=== PATIENT | male | born 1975 | race Caucasian/White ===

== ENCOUNTER 2022-12-29 09:27 | Outpatient (CLI) | payer OTHER, SELFPAY ==
--- NOTE | 2022-12-29 11:00 | NEURO_ITS ---
Impression: # Patient reports concern for Carpal Tunnel Syndrome, presenting with numbness in both hands. He has had surgery for Carpal Tunnel Syndrome in the past. # Normal Nerve Conduction Study. # Normal needle/EMG exam. # Clinical correlation recommended. Nerve Conduction Studies Anti Sensory Summary Table Stim Site NR Peak (ms) P-T Amp (?V) Site1 Site2 Delta-P (ms) Dist (cm) Keenan (m/s) Left Median Anti Sensory (2-3nd Digit) Wrist 3.6 53.3 Wrist 2-3nd Digit 3.6 14.0 39 Wrist 3.8 20.8 Wrist 2-3nd Digit 3.6 14.0 39 Right Median Anti Sensory (2-3nd Digit) Wrist 3.8 53.7 Wrist 2-3nd Digit 3.8 14.0 37 Wrist 3.9 32.1 Wrist 2-3nd Digit 3.8 14.0 37 Left Radial Anti Sensory (Base 1st Digit) Wrist 2.6 27.0 Wrist Base 1st Digit 2.6 0.0 Right Radial Anti Sensory (Base 1st Digit) Wrist 1.4 25.3 Wrist Base 1st Digit 1.4 0.0 Left Ulnar Anti Sensory (5th Digit) Wrist 3.0 32.1 Wrist 5th Digit 3.0 14.0 47 Right Ulnar Anti Sensory (5th Digit) Wrist 3.3 25.4 Wrist 5th Digit 3.3 14.0 42 Motor Summary Table Stim Site NR Onset (ms) O-P Amp (mV) Site1 Site2 Delta-0 (ms) Dist (cm) Keenan (m/s) Left Median Motor (Abd Poll Brev) Wrist 3.2 6.2 Elbow Wrist 4.2 24.0 57 Elbow 7.4 6.0 Right Median Motor (Abd Poll Brev) Wrist 3.3 7.1 Elbow Wrist 4.1 22.0 54 Elbow 7.4 6.1 Left Ulnar Motor (Abd Dig Minimi) Wrist 3.0 6.8 A Elbow Wrist 5.1 30.0 59 A Elbow 8.1 6.2 B Elbow Wrist 3.3 20.0 61 B Elbow 6.3 6.1 Right Ulnar Motor (Abd Dig Minimi) Wrist 2.8 8.4 A Elbow Wrist 4.9 29.0 59 A Elbow 7.7 8.2 B Elbow Wrist 3.1 19.0 61 B Elbow 5.9 7.9 F Wave Studies NR F-Lat (ms) L-R F-Lat (ms) Left Median (Mrkrs) (Abd Poll Brev) 29.61 0.00 Right Median (Mrkrs) (Abd Poll Brev) 29.61 0.00 Left Ulnar (Mrkrs) (Abd Dig Min) 30.70 0.23 Right Ulnar (Mrkrs) (Abd Dig Min) 30.93 0.23 EMG Side Muscle Nerve Root Ins Act Fibs Amp Dur Recrt Comment Right 1stDorInt Ulnar C8-T1 Nml Nml Nml Nml Nml Right Ext Indicis Radial (Post Int) C7-8 Nml Nml Nml Nml Nml Right Ext Digitorum Radial (Post Int) C7-8 Nml Nml Nml Nml Nml Right BrachioRad Radial C5-6 Nml Nml Nml Nml Nml Right PronatorTeres Median C6-7 Nml Nml Nml Nml Nml Right Abd Poll Brev Median C8-T1 Nml Nml Nml Nml Nml Left 1stDorInt Ulnar C8-T1 Nml Nml Nml Nml Nml Left Ext Indicis Radial (Post Int) C7-8 Nml Nml Nml Nml Nml Left Ext Digitorum Radial (Post Int) C7-8 Nml Nml Nml Nml Nml Left BrachioRad Radial C5-6 Nml Nml Nml Nml Nml Left PronatorTeres Median C6-7 Nml Nml Nml Nml Nml Left Abd Poll Brev Median C8-T1 Nml Nml Nml Nml Nml MTDD
== END 2022-12-29 09:28 | disposition home or self-care (01) ==
PROVIDERS: PCP Plastic Surgery; Visit Provider Orthopaedic Surgery
DX: G56.00 Carpal tunnel syndrome, unspecified upper limb (principal)
CPT/HCPCS: 95886; 95911

== ENCOUNTER 2023-03-03 10:03 | Outpatient (CLI) | payer OTHER, SELFPAY ==
[2023-03-03 10:51] LABS: Anion Gap 6 mmol/L (8-16); Blood Urea Nitrogen 16 mg/dL (9-20); Calcium 8.7 mg/dL (8.4-10.2); Carbon Dioxide 29 mmol/L (22-30); Chloride 104 mmol/L (98-107); Estimated Glomerular Filt Rate > 60; Glucose 91 mg/dL (65-110); Sodium 139 mmol/L (137-145)
== END 2023-03-03 10:04 | disposition home or self-care (01) ==
LOC: ANHSURGERY 10:18
PROVIDERS: Anesthesiology; Visit Provider Plastic Surgery
DX: Z01.818 Encounter for other preprocedural examination (principal); Z79.899 Other long term (current) drug therapy
CPT/HCPCS: 36415; 80048

== ENCOUNTER 2023-03-13 01:11 | Day surgery (SDC) | payer OTHER, SELFPAY ==
[2023-02-27 11:25] VITALS: BMI 30.1
--- NOTE | 2023-02-27 11:31 | PC.NURSE ---
Report to the Outpatient Waiting Room, entrance under the green pavilion located off [facility], at time 8:30 on date 03/13/23. Planned Procedure Time: 10:30. Time changes happen often and if your time is changed the preop area will call you the afternoon before. - You and your visitor will be asked to self-screen and do not enter if you have any COVID symptoms. - A mask is optional within the hospital at this time. - No food OR DRINK from midnight until time of surgery Take the following medications with a SIP of water the morning of surgery: LEXAPRO. PREDNISONE AND INHALER IF STILL USING DO NOT STOP ANY OF YOUR OTHER PRESCRIPTION MEDICATIONS PRIOR TO SURGERY ?EXCEPT THE FOLLOWING Medications to discontinue per physician: ASPIRIN Date to take last dose: CHECK WITH DR. DOMINGUEZ Please no make-up, nail bengali, hairspray, perfume, deodorant, or body powder the day of surgery. No jewelry (including any body piercings) or valuables the day of surgery, leave them at home. Please take a shower or bath the night before, or the morning of, surgery with an antibacterial soap. Wear comfortable, loose fitting clothing. - Jewelry must be removed prior to entering the operating room. Rings and piercings that are not removed may be cut off. - The hospital will not accept responsibility for valuables. - Please leave all valuables, including medications, at home the day of surgery. If you are going home after surgery, a licensed package delivery driver must drive you home. - NO public transportation without another adult if you receive anesthesia. - We recommend that an adult stay with you for 24 hours following discharge. - We also recommend that you do not drive, make important decision, drink alcoholic beverages, or take any drugs that were not prescribed by your health care provider for at least 24 hours after your discharge time. Follow any additional instructions given to you from your surgeon. If you or anyone in your household have experienced Covid symptoms in the past week, please notify your surgeon or the nurse liaison at the phone number below for possible testing. Telephone instructions given to PT - FERNANDO AGUIRRE and asked if any additional questions and then verbalized understanding. Patient advised to call surgeon office or pre surgery nurse liaison [phone] if any additional questions.
--- NOTE | 2023-03-13 06:58 | PM.HPGS ---
History of Present Illness History of Present Illness Chief complaint: right carpal tunnel syndrome Narrative: Patient seen and examined in pre-operative holding area. No interval change in medical history or symptoms. Patient recalls previous discussion of benefits and alternatives to procedure. Continues to desire to proceed with right ectr poss open . Reviewed procedure, post-op expectations and risks including but not limited to bleeding, infection, injury to tendon/nerve/vessel, decreased hand function, stiffness, RSD, no change or worsening of symptoms. I discussed the possible use of assistants and their participation in the case. Patient stated understanding and signed the consent form wishing to proceed. Review of Systems Review of Systems: All systems reviewed & are unremarkable except as noted in HPI and below PMFSH Past Medical History Medical History (Updated 03/13/23 @ 09:14 by Noah Hui MD) High cholesterol Hypertension Pancreatic divisum Snoring Surgical History Surgical History History of bilateral carpal tunnel release History of cholecystectomy History of cosmetic surgery in accident [place] History of knee surgery left History of repair of ACL right Family History Family History Mother Hypertension COPD (chronic obstructive pulmonary disease) CHF (congestive heart failure) Social History Social History Smoking packs per day: 0.75 Smoking cigarettes per day: 15.0 Years smoked: 15 Smoking pack-years: 11.25 Smoking status: Current every day smoker Tobacco type: cigarettes Alcohol intake: current Alcohol use details: RARE Substance use: never Substance use type: does not use Lack of Transportation: No Lack of Food: Never True Current Housing: I Do Not Have Housing Concerned About Future Housing: No Difficulty Paying Gas/Electric Bills: No Difficulty Paying for Meds: No Currently Unemployed: No Education: Trade/Vocational Certificate Difficulty w/ Childcare or Family Care: No Living arrangements: with family Occupation/Education: occupation Additional occupation/education comments: law enforcement Spiritual care concerns: No Meds Home Medications and Allergies Home Medications Medication Instructions Recorded Confirmed Type aspirin 81 mg capsule 81 mg PO DAILY 12/04/22 03/13/23 History atorvastatin 40 mg tablet 40 mg PO DAILY 12/04/22 03/13/23 History escitalopram oxalate 20 mg tablet 20 mg PO DAILY 12/04/22 03/13/23 History (Lexapro) hydrochlorothiazide 12.5 mg capsule 12.5 mg PO DAILY 12/04/22 03/13/23 History losartan 100 mg tablet 100 mg PO DAILY 12/04/22 03/13/23 History albuterol sulfate 90 mcg/actuation 1 inh inhalation QID PRN Shortness 02/27/23 03/13/23 History aerosol inhaler Of Breath prednisone 50 mg tablet 60 mg PO DAILY 02/27/23 03/13/23 History Allergies Allergy/AdvReac Type Severity Reaction Status Date / Time clonidine AdvReac Unknown feels Verified 02/27/23 11:24 intoxicated Exam Narrative: unchanged Assessment and Plan Assessment and plan (1) Bilateral carpal tunnel syndrome: Code(s): G56.03 - Carpal tunnel syndrome, bilateral upper limbs Status: Acute Assessment and Plan: cont with surgery as above
--- NOTE | 2023-03-13 06:59 | W.PM.PROC2 ---
Procedure Note - Detailed Date of Procedure 03/13/23 Pre-op Diagnosis right carpal tunnel syndrome Post-op Diagnosis Same Procedure Performed right ectr Surgeon Juanito Benavides MD Anesthesia MAC Description of Procedure ENDOSCOPIC CARPAL TUNNEL RELEASE INFORMED CONSENT: The patient was seen and examined and marked in the pre-op area.? The patient signed the consent form. PROCEDURE IN DETAIL:The patient taken back to OR on the stretcher in supine position. Time out performed with anesthesia, surgeon and staff agreeing on patient's name site and surgery to be performed SCDs were placed on the lower extremities and inflated. A tourniquet was placed on {right} upper extremity and antibiotics given IV After anesthesia administered sedation I injected {4}cc 1%lido with epi and 0.5% marcaine plain at the operative site The?{right upper extremity/}?was prepped and draped in sterile fashion the??{right upper extremity/} was? exsanguinated with Esmarch bandage and tourniquet inflated to 250mmHg I made a transverse incision in the {right} volar distal wrist crease through skin and dermis with 15 blade scalpel.? Littler scissors spread down to antebrachial fascia. A small incision was made in antebrachial fascia allowing access to Carpal tunnel. I proceeded with sequential dilation staying in line with the ring finger and hugging the hook of the hamate.? I then used the synovial elevator to free any adhesions from the underside of the transverse carpal ligament. Next I was able to insert the Microaire endoscopic carpal tunnel device for evalaution of the remnant of the transvers carpal ligament noting patient had previous open carpal tunnel release in the past. A band of persistent transverse fibers was noted at the distal aspect of transverse carpal ligament and I proceeded with retrograde release of these fibers.? Given patient's previous open carpal tunnel release history, the incision was slightly elongated allowing more direct visualization of the median nerve proximally at the wrist. There was no significant synovitis of the nerve. The endoscopic camera was utilized for deeper evaluation folllowing the course of the nerve distally and visualizing it. The nerve appeared healthy with visible vaso nervorum and no significant synovitis or adhesions or points of constriction. I irrigated with normal saline and closed with 4-0 monocryl for dermis and subcuticular closure. A dressing of Dermabond, 4x4, sarah, and a volar splint was applied for patient safety, security, and comfort and secured with an ritchie bandage after the tourniquet was let down noting the hand was warm and well perfused. The patient was then awaken from anesthesia and transferred to the recovery room in stable condition.? Complications - none EBL- 0cc Disposition - home in stable conditions [facility] Surgery - Charge Forward: Surgery Billing ([id number] )
[2023-03-13 09:00] VITALS: BP 146/85; PULSE 73; RESP 18; TEMP 36.1; O2SAT 99
--- NOTE | 2023-03-13 09:13 | WPDANESEPPF ---
Anes - Initial Pre Proc Eval Procedure: Operation Date: 03/13/23 10:30 Proposed Procedures p Right Endoscopic Carpal Tunnel Release, Possible Open - Juanito Benavides MD Date/Time: 03/13/23 09:13 Surgeon: Juanito Benavides MD Pre Op Diagnosis: right carpal tunnel syndrome Patient Data Age: 47 Gender: M Height: 1.78 m Weight: 97.5 kg Last Vital Signs Temp 36.1 C L 03/13/23 09:00 Pulse 73 03/13/23 09:00 Resp 18 03/13/23 09:00 BP 146/85 H 03/13/23 09:00 Pulse Ox 99 03/13/23 09:00 O2 Del Method Room Air 03/13/23 09:00 Allergies Allergy/AdvReac Type Severity Reaction Status Date / Time clonidine AdvReac Unknown feels Verified 02/27/23 11:24 intoxicated Home Medications Medication Instructions Recorded Confirmed Type aspirin 81 mg capsule 81 mg PO DAILY 12/04/22 03/13/23 History atorvastatin 40 mg tablet 40 mg PO DAILY 12/04/22 03/13/23 History escitalopram oxalate 20 mg tablet 20 mg PO DAILY 12/04/22 03/13/23 History (Lexapro) hydrochlorothiazide 12.5 mg capsule 12.5 mg PO DAILY 12/04/22 03/13/23 History losartan 100 mg tablet 100 mg PO DAILY 12/04/22 03/13/23 History albuterol sulfate 90 mcg/actuation 1 inh inhalation QID PRN Shortness 02/27/23 03/13/23 History aerosol inhaler Of Breath prednisone 50 mg tablet 60 mg PO DAILY 02/27/23 03/13/23 History Patient hx anesthesia problems: none Family hx anesthesia problems: none Results Review: All pre-operative results and documents have been reviewed as part of the pre-operative evaluation. [facility] Past Medical History Medical History (Updated 03/13/23 @ 09:14 by Noah Hui MD) High cholesterol Hypertension Pancreatic divisum Snoring Surgical History Surgical History History of bilateral carpal tunnel release History of cholecystectomy History of cosmetic surgery in [place] History of knee surgery left History of repair of ACL right Family History Family History Mother Hypertension COPD (chronic obstructive pulmonary disease) CHF (congestive heart failure) Social History Social History Smoking packs per day: 0.75 Smoking cigarettes per day: 15.0 Years smoked: 15 Smoking pack-years: 11.25 Smoking status: Current every day smoker Tobacco type: cigarettes Alcohol intake: current Alcohol use details: RARE Substance use: never Substance use type: does not use Lack of Transportation: No Lack of Food: Never True Current Housing: I Do Not Have Housing Concerned About Future Housing: No Difficulty Paying Gas/Electric Bills: No Difficulty Paying for Meds: No Currently Unemployed: No Education: Trade/Vocational Certificate Difficulty w/ Childcare or Family Care: No Living arrangements: with family Occupation/Education: occupation Additional occupation/education comments: law enforcement Spiritual care concerns: No Anes - Eval Final PreProcedure Day of Procedure 03/13/23 09:13 Patient weight: obese Heart: regular rate and rhythm Lungs: clear to auscultation Airway: Mallampati scale class II Neurological: alert and oriented Last oral intake: >/= 8 hours ASA classification: III Emergent: no Anesthetic plan: proceed Anesthesia type and monitoring: general GIVS and standard monitoring Results Review: All pre-operative results and documents have been reviewed as part of the pre-operative evaluation. Informed Consent: The patient's anesthetic plan and its attendant risks and benefits were discussed with the patient/family/POA. Questions were solicited and answers provided to the satisfaction of the patient/family/POA.
[2023-03-13] MEDS: LACTATED RINGERS 1,000 ML 30 ML IV CONT (09:15)
[2023-03-13] MEDS: ceFAZolin 2 GM/D5W 50 ML 2 GM/50 ML BAG IVPB (09:46)
[2023-03-13] MEDS: LIDO 1%/EPINEPHRINE 1:100,000 50 ML VIAL INFILTRATE (09:59)
[2023-03-13 10:10] VITALS: BP 115/68; PULSE 60; RESP 14; O2SAT 99
[2023-03-13 10:40] VITALS: BP 101/56; PULSE 63; RESP 14; O2SAT 99
== END 2023-03-13 10:54 | disposition home or self-care (01) ==
PROVIDERS: Visit Provider Plastic Surgery
PROC: 01N54ZZ Release Median Nerve, Percutaneous Endoscopic Approach (ICD-10-PCS; CPT 29848; principal; 2023-03-13 10:30)
DX: G56.01 Carpal tunnel syndrome, right upper limb (principal); I10 Essential (primary) hypertension; F17.210 Nicotine dependence, cigarettes, uncomplicated
CPT/HCPCS: 29848; 36415; 80048; J0690; J2405; J2704; J3010; J7120